=== PATIENT | female | born 1955 | race Two or more races ===

== ENCOUNTER 2016-12-12 21:51 | Emergency (ER) | payer OTHER ==
[~2016-12-12] VITALS: Ht 154.9 cm; Wt 87.5 kg
[2016-12-12 22:12] VITALS: BP 126/90
[2016-12-12] MEDS ORDERED: KETOROLAC TROMETHAMINE INJ 60 MG/2 ML VIAL IM ONE ×2 (22:52→23:00)
[2016-12-12] MEDS ORDERED: LORAZEPAM 1 MG TABLET ONE (22:52)
[2016-12-12] MEDS ORDERED: LORAZEPAM 1 MG TABLET PO ONE (23:00)
== END 2016-12-12 23:01 | disposition home or self-care (01) ==
LOC: ER 21:51
DX: M54.40 Lumbago with sciatica, unspecified side (principal); I10 Essential (primary) hypertension; G89.29 Other chronic pain
CPT/HCPCS: 96372; 99283; A4606; J1885; Z7610

== ENCOUNTER 2017-06-17 17:31 | Emergency (ER) | payer OTHER ==
[~2017-06-17] VITALS: Ht 157.5 cm; Wt 81.6 kg
--- NOTE | 2017-06-17 17:52 | NUR ---
BIB DTR DUE RIGH HIPPAIN X 3 DAYS, WORST TODAY. DENIES FALL/ INJURY. PT WITH CHRONIC HIP CHAVEZ, TAKING NORCO 10/325 MG Q2 PRN. VSS.
[2017-06-17] MEDS ORDERED: ONDANSETRON HCL/PF 4 MG/2 ML VIAL ONE (18:09)
[2017-06-17] MEDS ORDERED: MORPHINE SULFATE INJ 2 MG/ML DISP.SYRIN ONE (18:09)
[2017-06-17] MEDS ORDERED: MORPHINE SULFATE INJ 4 MG/ML DISP.SYRIN ONE (18:10)
[2017-06-17 18:22] LABS: BASOPHILS # (AUTO) 0.1 /CMM (0.0-0.2); BASOPHILS % (AUTO) 1.2 % (0.0-2.0); EOSINOPHILS # (AUTO) 0.1 /CMM (0.0-0.7); EOSINOPHILS % (AUTO) 1.6 % (0.0-6.0); HEMATOCRIT 44 % (33-45); LYMPHOCYTES # (AUTO) 2.5 /CMM (0.8-4.8); LYMPHOCYTES % (AUTO) 31.3 % (20.0-44.0); MEAN CORPUSCULAR HEMOGLOBIN 30 PG (26.0-33.0); MEAN CORPUSCULAR HGB CONC 34 g/dl (31.0-36.0); MEAN CORPUSCULAR VOLUME 89 fL (82-100); MONOCYTES # (AUTO) 0.7 /CMM (0.1-1.30); MONOCYTES % (AUTO) 9.2 % (2.0-12.0); NEUTROPHILS # (AUTO) 4.5 /CMM (1.8-8.9); NEUTROPHILS % (AUTO) 56.7 % (43.0-81.0); PLATELET COUNT (AUTO) 279 /CMM (150-450); RDW COEFFICIENT OF VARIATION 13.2 (11.5-15.0); RED BLOOD CELL COUNT(AUTO) 4.95 MIL/uL (4.0-5.2); WHITE BLOOD COUNT (AUTO) 7.9 K/uL (4.3-11.0)
[2017-06-17] MEDS ORDERED: MORPHINE SULFATE INJ 2 MG/ML DISP.SYRIN IV ONE (18:30)
[2017-06-17] MEDS ORDERED: ONDANSETRON HCL/PF 4 MG/2 ML VIAL IVP ONE (18:30)
--- NOTE | 2017-06-17 18:38 | NUR ---
PT WAS TAKEN TO CT
--- NOTE | 2017-06-17 18:48 | NUR ---
PT STILL IN CT
[2017-06-17 18:59] LABS: CALCIUM, SERUM 8.9 mg/dL (8.5-10.1); CREATININE 0.6 mg/dL (0.6-1.3); POTASSIUM 3.7 mmol/L (3.5-5.1)
[2017-06-17 19:05] LABS: ALBUMIN 3.5 g/dL (3.4-5.0); BILIRUBIN,TOTAL 0.2 mg/dL (0.2-1.0); TOTAL PROTEIN, SERUM 7.4 g/dL (6.4-8.2)
[2017-06-17 19:06] LABS: APPEARANCE,URINE Clear (CLEAR); BILIRUBIN,URINE Negative (NEGATIVE); BLOOD, URINE Moderate Ery/uL (NEGATIVE); COLOR,URINE Yellow (YELLOW); KETONES,URINE Negative (NEGATIVE); LEUKOCYTE ESTERASE ,URINE Negative (NEGATIVE); NITRITE, URINE Negative (NEGATIVE); PROTEIN,URINE Negative (NEGATIVE); UGLUCOSE Negative (NEGATIVE); UROBILINOGEN,URINE 0.2 EU/dL (0.2)
[2017-06-17 19:25] LABS: BACTERIA,URINE None seen /HPF (None Seen); CALCIUM OXALATE CRYSTALS,UR Moderate /HPF (None Seen); SQUAMOUS EPITHELIAL CELL,UR Moderate /HPF (None Seen); WBC,URINE 0-2 /HPF (0-3)
--- NOTE | 2017-06-17 19:29 | NUR ---
REPORT GIVEN TO KIERAN DAMICO FOR MIKE
[2017-06-17] MEDS ORDERED: HYDROMORPHONE 1 MG/1 ML DISP.SYRIN ONE ×2 (20:23→21:59)
[2017-06-17] MEDS ORDERED: HYDROMORPHONE INJ 2 MG/ML DISP.SYRIN IV ONE ×2 (20:30→22:00)
[2017-06-17] MEDS ORDERED: diphenhydrAMINE HCL 50 MG/ML VIAL ONE (22:00)
[2017-06-17 22:09] VITALS: BP 112/68
--- NOTE | 2017-06-17 22:21 | NUR ---
Patient discharged to home in stable condition. Written and verbal after care instructions given. Patient verbalizes understanding of instruction. ambulatory with a steady gait
[2017-06-17] MEDS ORDERED: diphenhydrAMINE HCL 50 MG/ML VIAL IV ONE (22:30)
== END 2017-06-17 22:14 | disposition home or self-care (01) ==
LOC: ER 17:34
DX: M54.5 Low back pain (principal); G89.29 Other chronic pain; E86.0 Dehydration; I10 Essential (primary) hypertension; M19.90 Unspecified osteoarthritis, unspecified site
CPT/HCPCS: 36415; 72131; 72170; 80048; 80076; 81001; 85025; 96374; 96375; 96376; 99285; A4606; J1170 ×2; J1200; J2270 ×2; J2405; Z7610; 81000-TC

== ENCOUNTER 2017-11-16 10:13 | Emergency (ER) | payer OTHER ==
[~2017-11-16] VITALS: Ht 157.5 cm; Wt 81.6 kg
--- NOTE | 2017-11-16 10:25 | NUR ---
PRESENTS TO ER C/O BACK PAIN, WORSENING DURING THE LAST 4 DAYS; NO FALL. NO RELIEF FROM NORCO 10/. PATIENT A/OX 4. BREATHING EVEN AND UNLABORED. NO SOB. VITALS STABLE. SAFETY AND COMFORT MEASURES IN PLACE. AWAITING MD ORDERS.
--- NOTE | 2017-11-16 10:32 | NUR ---
PATIENT TO ED DT BACK PAIN X 4 DAYS WORST TODAY, 06/12, SHARP. PATIENT ARRIVED ON WHEELCHAIR. DENIES TRAUMA NOR FALL. PATIENT IS AFEBRILE. VSS
[2017-11-16] MEDS ORDERED: KETOROLAC TROMETHAMINE INJ 30 MG/ML VIAL ONE (11:19)
--- NOTE | 2017-11-16 11:24 | NUR ---
MEDICATED PATIENT PER MD ORDERS.
[2017-11-16] MEDS ORDERED: KETOROLAC TROMETHAMINE INJ 30 MG/ML VIAL IM ONE (11:30)
[2017-11-16 12:04] VITALS: BP 128/81
--- NOTE | 2017-11-16 12:05 | NUR ---
Patient discharged to home in stable condition. Written and verbal after care instructions given. Patient verbalizes understanding of instruction.
== END 2017-11-16 12:05 | disposition home or self-care (01) ==
LOC: ER 10:14
DX: M54.41 Lumbago with sciatica, right side (principal); G89.29 Other chronic pain; I10 Essential (primary) hypertension
CPT/HCPCS: A4606; J1885; Z7610

== ENCOUNTER 2023-09-28 08:40 | Emergency (ER) | payer MEDICARE, OTHER ==
[~2023-09-28] VITALS: Ht 144.8 cm; Wt 77.6 kg
[2023-09-28 08:55] VITALS: TEMP 98.4
[2023-09-28 09:28] LABS: BASOPHILS % (AUTO) 0.5 % (0.0-2.0); EOSINOPHILS # (AUTO) 0.1 K/uL (0.0-0.7); EOSINOPHILS % (AUTO) 1.6 % (0.0-6.0); HEMATOCRIT 44 % (33-45); HEMOGLOBIN 15.2 g/dL (11.5-14.8); LYMPHOCYTES # (AUTO) 2.1 K/uL (0.8-4.8); LYMPHOCYTES % (AUTO) 30.1 % (20.0-44.0); MEAN CORPUSCULAR HEMOGLOBIN 31 PG (26.0-33.0); MEAN CORPUSCULAR HGB CONC 34 g/dl (31.0-36.0); MEAN CORPUSCULAR VOLUME 91 fL (82-100); MONOCYTES # (AUTO) 0.8 K/uL (0.1-1.30); MONOCYTES % (AUTO) 11.1 % (2.0-12.0); NEUTROPHILS # (AUTO) 3.9 K/uL (1.8-8.9); NEUTROPHILS % (AUTO) 56.7 % (43.0-81.0); PLATELET COUNT (AUTO) 255 K/uL (150-450); RED BLOOD CELL COUNT(AUTO) 4.86 MIL/uL (4.0-5.2); RED CELL DISTRIBUTION WIDTH 14.1 % (11.5-15.0)
[2023-09-28 09:52] LABS: CARBON DIOXIDE 29 mmol/L (21-32); CHLORIDE 102 mmol/L (98-107); CREATININE 0.7 mg/dL (0.6-1.3); GLUCOSE 112 mg/dL (74-106); SODIUM SERUM 136 mmol/L (136-145); UREA NITROGEN, BLOOD 14 mg/dL (7-18)
[2023-09-28] MEDS ORDERED: ONDANSETRON HCL/PF 4 MG/2 ML VIAL ONE (09:52)
[2023-09-28] MEDS ORDERED: KETOROLAC TROMETHAMINE 15 MG/ML VIAL ONE (09:52)
[2023-09-28 10:04] LABS: ALANINE AMINOTRANSFERASE 34 U/L (12-78); ALBUMIN 3.6 g/dL (3.4-5.0); ALKALINE PHOSPHATASE 84 U/L (46-116); ASPARTATE AMINOTRANSFERASE 17 U/L (15-37); BILIRUBIN,DIRECT 0.1 mg/dL (0.0-0.2); BILIRUBIN,TOTAL 0.3 mg/dL (0.2-1.0); NT-PRO BNP 59 pg/mL (0-125)
[2023-09-28] MEDS: IV NS 0.9% 1,000 ML BAG IV ONE (10:05)
[2023-09-28] MEDS: ONDANSETRON HCL/PF 4 MG/2 ML VIAL IV ONE (10:06)
[2023-09-28] MEDS: KETOROLAC TROMETHAMINE 15 MG/ML VIAL IV ONE (10:06)
[2023-09-28 12:47] LABS: APPEARANCE,URINE CLOUDY (CLEAR); BILIRUBIN,URINE NEGATIVE (NEGATIVE); BLOOD, URINE TRACE-INTA Ery/uL (NEGATIVE); COLOR,URINE YELLOW (YELLOW); KETONES,URINE NEGATIVE (NEGATIVE); LEUKOCYTE ESTERASE ,URINE NEGATIVE (NEGATIVE); NITRITE, URINE NEGATIVE (NEGATIVE); PH,URINE 7.5 (5.0-8.0); PROTEIN,URINE NEGATIVE (NEGATIVE); UGLUCOSE NEGATIVE (NEGATIVE); UROBILINOGEN,URINE 0.2 EU/dL (0.2)
[2023-09-28 12:54] LABS: ADD URINE CULTURE NO; BACTERIA,URINE Rare /HPF (None Seen); SQUAMOUS EPITHELIAL CELL,UR Rare /HPF (None Seen); WBC,URINE 0-2 /HPF (0-3)
[2023-09-28] MEDS ORDERED: IBUP-1955 PO (13:08)
[2023-09-28] MEDS ORDERED: LIDO30AD10 TP (13:08)
[2023-09-28 13:25] VITALS: BP 136/64; O2SAT 100
== END 2023-09-28 13:26 | disposition home or self-care (01) ==
LOC: ER 08:48
DX: R07.89 Other chest pain (principal); M94.0 Chondrocostal junction syndrome [Tietze]; I10 Essential (primary) hypertension; E78.5 Hyperlipidemia, unspecified; G89.29 Other chronic pain; M19.90 Unspecified osteoarthritis, unspecified site
CPT/HCPCS: 99285; 96374; 71045; 96361; 96375; 93005 ×2; 85025; 80048; 83690; 80076; 81001; 36415; 84484; 83880; J2405; J7030; J1885